=== PATIENT | male | born 1990 | race Caucasian/White ===

== ENCOUNTER 2018-05-24 11:52 | Inpatient (IN) | payer MEDICAID ==
[2018-05-24 12:56] LABS: ADD MAN DIFF? NO
[2018-05-24 13:02] LABS: WHITE BLOOD COUNT 17.4 10^3/ul (4.8-10.8)
[2018-05-24 13:02] LABS: BASOPHILS % 0.2 % (0.0-2.0); EOSINOPHILS % 0.1 % (0.0-7.0); HEMATOCRIT 45.1 % (42.0-52.0); HEMOGLOBIN 15.4 g/dl (14.0-18.0); LYMPHOCYTES % 11.2 % (15.0-51.0); MEAN CORPUSCULAR HEMOGLOBIN 30.2 pg (29.0-33.0); MEAN CORPUSCULAR HGB CONC 34.1 g/dl (32.0-37.0); MEAN CORPUSCULAR VOLUME 88.4 fl (82.0-101.0); MEAN PLATELET VOLUME 10.5 fl (7.4-10.4); MONOCYTE # 1.3 10^3/ul (0.3-0.9); MONOCYTES % 7.5 % (0.0-11.0); NEUTROPHILS % 80.7 % (39.0-77.0); PLATELET COUNT 217 10^3/UL (140-415); RED CELL DISTRIBUTION WIDTH 12.3 % (11.5-14.5)
[2018-05-24 13:19] LABS: ADD UMIC NO; UR ASCORBIC ACID NEGATIVE (NEGATIVE); UR BILIRUBIN (Dip) NEGATIVE (NEGATIVE); UR BLOOD (Dip) NEGATIVE (NEGATIVE); UR CLARITY CLEAR (CLEAR); UR COLOR YELLOW (YELLOW); UR GLUCOSE (Dip) NEGATIVE (NEGATIVE); UR KETONES (Dip) NEGATIVE (NEGATIVE); UR LEUKOCYTE ESTERASE (Dip) NEGATIVE Leu/ul (NEGATIVE); UR NITRITE (Dip) NEGATIVE (NEGATIVE); UR SPECIFIC GRAVITY (Dip) 1.026 (1.003-1.030); UR TOTAL PROTEIN (Dip) NEGATIVE (NEGATIVE); UR UROBILINOGEN (Dip) NEGATIVE (NEGATIVE)
[2018-05-24 13:20] LABS: ALANINE AMINOTRANSFERASE 36 IU/L (13-69); ALBUMIN 4.7 g/dl (3.3-4.9); ALBUMIN/GLOBULIN RATIO 1.11; ALKALINE PHOSPHATASE 113 IU/L (42-121); ANION GAP 15 (8-16); ASPARTATE AMINO TRANSFERASE 34 IU/L (15-46); BILIRUBIN,INDIRECT 0.8 mg/dl (0-1.1); BILIRUBIN,TOTAL 0.8 mg/dl (0.2-1.3); BLOOD UREA NITROGEN 16 mg/dl (7-20); CARBON DIOXIDE 28 mmol/L (21-31); CHLORIDE 101 mmol/L (97-110); CREATININE 0.88 mg/dl (0.61-1.24); GLUCOSE 115 mg/dl (70-220); LIPASE 27 U/L (23-300); POTASSIUM 4.2 mmol/L (3.5-5.1); SODIUM 140 mmol/L (135-144); TOTAL PROTEIN 8.9 g/dl (6.1-8.1)
[2018-05-24] MEDS: IOHEXOL 300MG/ML 150 ML BTL (13:57)
[2018-05-24] MEDS: SOD CHLORIDE 0.9% 100 ML (13:57)
[2018-05-24] MEDS: SOD CHLORIDE 0.9% 1,000 ML IV (15:01)
[2018-05-24] MEDS: ONDANSETRON 4 MG INJ IV (15:02)
[2018-05-24] MEDS: morphine 4 MG/ML VIAL IV (15:02)
[2018-05-24] MEDS ORDERED: ACETAMINOPHEN 325 MG TAB PO (15:30)
[2018-05-24] MEDS ORDERED: ONDANSETRON 4 MG INJ IV ×2 (15:30→22:00)
[2018-05-24] MEDS: PIPER-TAZO 3.375 GM IV (PMX) 100 ML IVPB ×2 (15:58→22:00)
[2018-05-24] MEDS: AMPICILLIN/SULB 3 GM/NS (PMX) 100 ML IVPB (16:22)
[2018-05-24] MEDS ORDERED: PROCHLORPERAZINE 10 MG INJ IV (22:00)
[2018-05-24] MEDS ORDERED: HYDROmorphONE 1 MG/5 ML IV SYRINGE IV ×3 (22:00)
[2018-05-24] MEDS ORDERED: BUPIVACAINE 0.25%/EPI (SDV) 30 ML INJ (22:00)
[2018-05-24] MEDS ORDERED: DIPHENHYDRAMINE 50 MG INJ IV (22:00)
[2018-05-24] MEDS ORDERED: MEPERIDINE 25 MG INJ IV (22:00)
[2018-05-24] MEDS ORDERED: LIDOCAINE 1% (MPF) 30 ML INJ (22:00)
[2018-05-24] MEDS ORDERED: FENTAnyl 50 MCG/ML VIAL IV ×3 (22:00)
[2018-05-24] MEDS ORDERED: LIDOCAINE 2% (SDV) 5 ML INJ (22:24)
[2018-05-24] MEDS ORDERED: SUCCINYLCHOLINE CHLORIDE 100 MG/5 ML SYG IV (22:24)
[2018-05-24] MEDS ORDERED: PROPOFOL 20 ML ×2 (22:24→22:30)
[2018-05-24] MEDS ORDERED: ROCURONIUM 50 MG INJ (22:24)
[2018-05-24] MEDS ORDERED: MIDAZOLAM 1 MG/ML 2 ML INJ (22:25)
[2018-05-24] MEDS ORDERED: FENTAnyl 50 MCG/ML VIAL (22:25)
[2018-05-24] MEDS ORDERED: DEXAMETHASONE 4 MG/ML 1 ML INJ (22:30)
[2018-05-24] MEDS ORDERED: ONDANSETRON 4 MG INJ (22:30)
[2018-05-24] MEDS ORDERED: PHENYLephrine (100 MCG/ML) 5ML SYG (22:33)
[2018-05-24] MEDS ORDERED: ROPIVACAINE 0.5 % 30 ML VIAL (22:34)
[2018-05-24] MEDS ORDERED: CIPROFLOXACIN 400MG/D5W 200 ML (22:48)
[2018-05-24] MEDS ORDERED: ACETAMINOPHEN 1000MG/100ML IV 100 ML (22:58)
[2018-05-24] MEDS ORDERED: SUGAMMADEX SODIUM 200 MG/2 ML VIAL IV (22:58)
[2018-05-24] MEDS ORDERED: KETOROLAC 30 MG INJ (23:05)
[2018-05-24] MEDS ORDERED: HYDROmorphONE 2 MG/ML SYG (23:06)
[2018-05-24] MEDS ORDERED: HYDROCODONE/APAP (5/325) TAB PO ×2 (23:30)
[2018-05-25] MEDS: morphine 2 MG INJ IV (00:38)
[2018-05-25] MEDS: SOD CHLORIDE 0.9% 1,000 ML IV (01:54)
[2018-05-25] MEDS: PIPER-TAZO 3.375 GM IV (PMX) 100 ML IVPB ×2 (01:54→05:59)
== END 2018-05-25 15:20 | disposition home or self-care (01) | DRG 343 ==
LOC: FTE 11:52 → MS1 15:27
PROC: 0DTJ4ZZ Resection of Appendix, Percutaneous Endoscopic Approach (ICD-10-PCS; principal; 2018-05-24 22:00)
DX: K35.80 Unspecified acute appendicitis (principal); F17.210 Nicotine dependence, cigarettes, uncomplicated
CPT/HCPCS: 36415; 74177; 80053; 81003; 83690; 85025; 88304; 96374; 96375; 99285-25